=== PATIENT | female | born 1945 | race Caucasian/White ===

== ENCOUNTER 2020-02-08 06:58 | Emergency (ER) | payer MEDICARE, MEDICAID, SELFPAY ==
--- NOTE | ~2020-02-08 | XR_ITS ---
EXAMINATION: XR chest 2V DATE: 02/08/2020 08:01 INDICATION: Chest pain, shortness of breath TECHNIQUE: AP and lateral views of the chest are obtained. COMPARISON: 04/16/2018 FINDINGS: The lungs are free of acute opacities. There is no pleural effusion or pneumothorax. The ca rdiomediastinal silhouette is normal. There is moderate thoracic spondylosis. IMPRESSION: 1. No acute cardiopulmonary abnormality. Reviewed, dictated and finalized at location A.
--- NOTE | ~2020-02-08 | US_ITS ---
EXAMINATION: US right upper quadrant DATE: 02/08/2020 08:04 INDICATION: Right upper quadrant and epigastric abdominal pain TECHNIQUE: Multiple grayscale and Doppler ultrasound images of the abdomen were obtained. COMPARISON: CT, 04/13/2018 FINDINGS: Bowel gas obscures visualization of the pancreas. The visualized portions of the pancreas a re unremarkable. The liver is normal with normal echogenicity and echotexture. No surface nodularity. Normal hepatopetal flow in the main portal vein. The gallbladder is normal with no abnormal wall thi ckening, pericholecystic fluid or stones. The normal common bile duct measures 5 mm. There was no son ographic Kimball sign. IMPRESSION: 1. Normal sonographic study of the gallbladder. Reviewed, dictated and finalized at location A.
[2020-02-08 06:57] VITALS: BP 176/79; PULSE 98; RESP 24; TEMP 36.6; O2SAT 96
[2020-02-08 07:10] VITALS: PULSE 95
--- NOTE | 2020-02-08 07:12 | ECG_ITS ---
Measurements Intervals [place] Rate: 95 P: 73 [place]: 157 QRS: -28 QRSD: 97 T: 42 QT: 308 QTc: 388 Interpretive Statements SINUS RHYTHM DELAYED PRECORDIAL R/S TRANSITION BASELINE ARTIFACT- I, II, III, AVR, AVL, AVF BORDERLINE ECG Electronically Signed On 02-08-2020 8:05:59 CDT by Ezio Garcia D.O.
[2020-02-08 07:26] LABS: Basophils Percent Auto 0.3 % (0.2-1.2); Eosinophils Absolute Auto 0.4 K/mm3 (0-0.3); Eosinophils Percent Auto 3.7 % (0-4.4); Hematocrit 42.8 % (37.0-47.0); Hemoglobin 14.2 g/dL (12.0-15.0); Immature Granulocyte Absolute 0.03 K/mm3 (0.00-0.031); Immature Granulocyte Percent A 0.3 % (0-0.5); Lymphocytes Absolute Auto 3.24 K/mm3 (0.9-3.2); Lymphocytes Percent Auto 27.7 % (18.3-44.2); Mean Corpuscular HGB Conc 33.2 g/dl (32-36); Mean Corpuscular Hemoglobin 30.7 pg (26-34); Mean Corpuscular Volume 92.4 fl (80-100); Mean Platelet Volume 10.8 fl (7.4-10.4); Monocytes Percent Auto 8.7 % (2.6-8.5); Neutrophils Absolute Auto 6.9 K/mm3 (1.3-6.7); Neutrophils Percent Auto 59.3 % (45.5-73.1); Platelet Count Result 201 k/mm3 (150-375); Red Blood Count 4.63 M/mm3 (4.2-5.4); Red Cell Distribution Width 13.3 % (11.5-14.5); White Blood Count 11.7 K/mm3 (4.5-10.0)
[2020-02-08 07:36] LABS: INR 0.9; Prothrombin Time 12.3 Seconds (11.1-14.7)
[2020-02-08 07:37] LABS: Partial Thromboplastin Time 27.4 SECONDS (22.3-36.8)
[2020-02-08 07:38] LABS: Anion Gap 6 mmol/L (8-16); Blood Urea Nitrogen 29 mg/dL (7-17); Calcium 9.2 mg/dL (8.4-10.2); Carbon Dioxide 26 mmol/L (22-30); Chloride 104 mmol/L (98-107); Estimated CRCL calculation 43 ml/min; Estimated Glomerular Filt Rate 49; Glucose 123 mg/dL (65-105); Potassium 3.8 mmol/L (3.4-5.0); Sodium 136 mmol/L (137-145)
--- NOTE | 2020-02-08 07:46 | ED.GENADULT ---
HPI - General Adult General Chief complaint: Chest Pain Stated complaint: CHEST PRESSURE Time Seen by Provider: 02/08/20 06:59 History of Present Illness HPI narrative: Patient is a 74-year-old female who presents the ER with chest pain. Began last night at 4:30 AM. The last about 15 minutes at a time then goes away for 20 minutes. Seems to go from her epigastrium to her back and vice versa. No nausea or vomiting or sweats. She is without shortness of breath. No aggravating or alleviating factors. Has not had similar symptoms before. Reports once in the past she was diagnosed with angina, however chart review shows she has history of right coronary artery stenting in 2013. Unsure if this is similar. Related Data Home Medications Medication Instructions Recorded Confirmed albuterol sulfate INHALATION 02/08/20 aspirin 81 mg PO DAILY 02/08/20 02/08/20 budesonide-formoterol [Symbicort] INHALATION 02/08/20 doxazosin mg 02/08/20 fosinopril 02/08/20 levothyroxine 02/08/20 lorazepam 02/08/20 simvastatin mg 02/08/20 tiotropium bromide [Spiriva INHALATION 02/08/20 Respimat] Allergies Allergy/AdvReac Type Severity Reaction Status Date / Time Penicillins Allergy Unknown Difficulty Verified 02/08/20 07:11 Breathing CEFUROXIME AXETIL Allergy Unknown Itching Uncoded 02/08/20 07:11 Review of Systems Review of Systems: All systems reviewed & are unremarkable except as noted in HPI and below Constitutional: Constitutional: Denies chills, Denies fever(s) and Denies weakness ENT: Denies nasal congestion and Denies sore throat Cardiovascular: Cardiovascular: Reports chest pain, Denies rapid heart rate and Denies radiating jaw, neck or arm pain Respiratory: Respiratory: Denies cough and Denies dyspnea Gastrointestinal: Gastrointestinal: Denies abdominal pain, Denies diarrhea, Denies nausea and Denies vomiting [facility], [facility] Past Medical History Medical History (Updated 02/08/20 @ 11:05 by Abdirashid Servin MD) COPD (chronic obstructive pulmonary disease) Coronary artery disease Hypertension Surgical History Surgical History (Updated 02/08/20 @ 07:51 by Abdirashid Servin MD) H/O: hysterectomy History of appendectomy S/P right coronary artery (RCA) stent placement Social History Social History (Updated 02/08/20 @ 07:49 by Abdirashid Servin MD) Smoking status: Former smoker Exam Narrative: Exam Narrative: GENERAL: Well-appearing, well-nourished, and in no acute distress. HEAD: Normocephalic, atraumatic. ENT: Mucous membranes moist. CHEST: Clear to auscultation. No respiratory distress. HEART: Regular rate and rhythm. Normal peripheral pulses. ABDOMEN: Soft, nontender, nondistended. EXTREMITIES: Normal range of motion. No edema. SKIN: Warm, dry, no rash. NEURO: Alert and oriented x3. Course Course Emergency Course: Troponins negative x2. No pain since she is been picked up by EMS. Patient would like to go home. States she will follow-up with her senior hris analyst Dr. Dao. She had a negative stress test 1 year ago. Discussed maybe she should obtain a second one. Vital Signs Vital signs: Vital Signs Temperature 97.9 F 02/08/20 06:57 Pulse Rate 98 02/08/20 06:57 Respiratory Rate 24 H 02/08/20 06:57 Blood Pressure 176/79 H 02/08/20 06:57 Pulse Oximetry 96 02/08/20 06:57 Temperature 97.9 F 02/08/20 06:57 Pulse Rate 95 02/08/20 07:10 Respiratory Rate 24 H 02/08/20 06:57 Blood Pressure 176/79 H 02/08/20 06:57 Pulse Oximetry 96 02/08/20 06:57 Medical Decision Making Vital Signs Vital Signs: Vital Signs Temperature 97.9 F 02/08/20 06:57 Pulse Rate 98 02/08/20 06:57 Respiratory Rate 24 H 02/08/20 06:57 Blood Pressure 176/79 H 02/08/20 06:57 Pulse Oximetry 96 02/08/20 06:57 Temperature 97.9 F 02/08/20 06:57 Pulse Rate 95 02/08/20 07:10 Respiratory Rate 24 H 02/08/20 06:57 Blood Pressure 176/79 H 02/08/20 06:57 Pulse Oxime
[2020-02-08 07:49] LABS: Alanine Aminotransferase 18 U/L (4-35); Albumin Level 3.9 g/dL (3.5-5.1); Alkaline Phosphatase 114 U/L (38-126); Aspartate Amino Transferase 24 U/L (14-36); Bilirubin,Total 0.4 mg/dL (0.2-1.3); Lipase 73 U/L (23-300)
[2020-02-08 07:50] LABS: Troponin I < 0.012 ng/mL (0.000-0.034)
[2020-02-08] MEDS: SODIUM CHLORIDE 0.9% IV 1,000 ML 999 ML IV CONT (08:22)
[2020-02-08 09:00] VITALS: BP 128/76; PULSE 92; RESP 17; O2SAT 98
[2020-02-08 10:43] LABS: Troponin I < 0.012 ng/mL (0.000-0.034)
[2020-02-08 10:45] VITALS: BP 125/74; PULSE 90; RESP 16; O2SAT 98
== END 2020-02-08 11:35 | disposition home or self-care (01) ==
PROVIDERS: Emergency Provider Emergency Medicine; PCP Internal Medicine
DX: R07.89 Other chest pain (principal); J44.9 Chronic obstructive pulmonary disease, unspecified; I25.10 Atherosclerotic heart disease of native coronary artery without angina pectoris; I10 Essential (primary) hypertension; Z79.82 Long term (current) use of aspirin; Z95.5 Presence of coronary angioplasty implant and graft; Z87.891 Personal history of nicotine dependence; R94.31 Abnormal electrocardiogram [ECG] [EKG]
CPT/HCPCS: 36415; 71046; 76705; 80048; 80076; 83690; 84484; 85025; 85610; 85730; 93005; 96360; 96361; 99284; J7030

== ENCOUNTER 2021-06-06 05:09 | Emergency (ER) | payer MEDICARE, MEDICAID, SELFPAY ==
--- NOTE | ~2021-06-06 | XR_ITS ---
EXAMINATION: XR chest 1V portable DATE: 06/06/2021 12:35 INDICATION: Right chest pain. TECHNIQUE: A single frontal view of the chest was obtained. COMPARISON: Chest 2 views 02/08/2020, CT abdomen and pelvis 06/06/2021 FINDINGS: The chest demonstrates clear lungs without pneumonia, pleural effusion, or pneumothorax. Th e heart size is normal. IMPRESSION: 1. No acute cardiopulmonary disease. Reviewed, dictated and finalized at location A. RETTE ROLLER
--- NOTE | ~2021-06-06 | CT_ITS ---
EXAMINATION: CT abdomen pelvis w con DATE: 06/06/2021 08:09 INDICATION: Right flank pain. Nausea and vomiting. TECHNIQUE: Computed tomography (CT) of the abdomen and pelvis was performed with 100 mL Omnipaque 350 intravenous contrast. Automated exposure control and iterative reconstruction technique were employe d. The dose-length product was 1177.12 mGy-cm. COMPARISON: CT abdomen and pelvis 04/13/2018 FINDINGS: The visualized portions of the lung bases demonstrate mild atelectasis. A calcified left patty ng nodule is consistent with old granulomatous disease. No pleural effusion. The heart size is normal . No pericardial effusion. There are coronary artery calcifications. The liver, gallbladder, spleen, pancreas, and adrenal glands are normal. There are cysts in the kidneys measuring up to 13 mm on the right. There is diverticulosis of the colon without evidence of diverticulitis. The appendix is not v isualized. There is a small sliding hiatal hernia. There is a small umbilical hernia containing fat. There are no pathologically enlarged lymph nodes. There is no free intraperitoneal fluid. There is se igor lumbar spondylosis. IMPRESSION: 1. Small sliding hiatal hernia. 2. Umbilical hernia containing fat. Reviewed, dictated and finalized at location A. TION METALSMITH
[2021-06-06 05:15] VITALS: BP 145/112; PULSE 70; RESP 16; TEMP 35.9; O2SAT 96
[2021-06-06] MEDS: fentaNYL CITRATE INJ (*CRX) 100 MCG/2 ML VIAL 50 MCG IV PUSH (06:25)
[2021-06-06] MEDS: ONDANSETRON INJ 4 MG/2 ML VIAL IV PUSH ×2 (06:25→09:07)
[2021-06-06 06:30] VITALS: BP 169/63; PULSE 99; RESP 20; O2SAT 94
[2021-06-06 07:15] LABS: Basophils Percent Auto 0.2 % (0.2-1.2); Eosinophils Absolute Auto 0.2 K/mm3 (0-0.3); Eosinophils Percent Auto 1.9 % (0-4.4); Hematocrit 40.8 % (37.0-47.0); Hemoglobin 13.5 g/dL (12.0-15.0); Immature Granulocyte Absolute 0.02 K/mm3 (0.00-0.031); Immature Granulocyte Percent A 0.2 % (0-0.5); Lymphocytes Absolute Auto 1.11 K/mm3 (0.9-3.2); Lymphocytes Percent Auto 13.8 % (18.3-44.2); Mean Corpuscular HGB Conc 33.1 g/dl (32-36); Mean Corpuscular Hemoglobin 30.7 pg (26-34); Mean Corpuscular Volume 92.7 fl (80-100); Mean Platelet Volume 11.2 fl (7.4-10.4); Monocytes Absolute Auto 0.6 K/mm3 (0.1-0.6); Monocytes Percent Auto 6.8 % (2.6-8.5); Neutrophils Absolute Auto 6.2 K/mm3 (1.3-6.7); Neutrophils Percent Auto 77.1 % (45.5-73.1); Platelet Count Result 187 k/mm3 (150-375); Red Cell Distribution Width 13.2 % (11.5-14.5); White Blood Count 8.1 K/mm3 (4.5-10.0)
--- NOTE | 2021-06-06 07:18 | ED.ABDPAIN ---
HPI - Abdominal Pain General Chief Complaint: Abdominal Pain Stated Complaint: Back Pain Time Seen by Provider: 06/06/21 07:08 Source: RN notes reviewed History of Present Illness HPI narrative: Patient presents emergency department from home for abdominal pain. Patient states pain began 2 days ago. Pain is located in the right flank region and radiates around under the right rib cage pain described as sharp and stabbing has been constant for the past 2 days is associated with nausea. Patient denies any fevers or chills chest pain shortness of breath vomiting diarrhea or any other symptoms states she took a tramadol at home for the pain with minimal relief. Related Data Home Medications Medication Instructions Recorded Confirmed albuterol sulfate INHALATION 02/08/20 aspirin 81 mg PO DAILY 02/08/20 02/08/20 budesonide-formoterol [Symbicort] INHALATION 02/08/20 doxazosin mg 02/08/20 fosinopril 02/08/20 levothyroxine 02/08/20 lorazepam 02/08/20 simvastatin mg 02/08/20 tiotropium bromide [Spiriva INHALATION 02/08/20 Respimat] Allergies Allergy/AdvReac Type Severity Reaction Status Date / Time Penicillins Allergy Unknown Difficulty Verified 06/06/21 05:19 Breathing CEFUROXIME AXETIL Allergy Unknown Itching Uncoded 06/06/21 05:19 Review of Systems Review of Systems: Gen.: Denies fevers or chills ENT: Denies congestion Respiratory: Denies shortness of breath or cough CV: Denies chest pain or palpitations GI: See HPI denies burning, urgency, frequency or hematuria Musculoskeletal: Denies back pain or muscle pain Neuro: Denies numbness, tingling, weakness or focal weakness Skin: Denies rash Except as documented, all other systems reviewed and negative [facility] Past Medical History Medical History COPD (chronic obstructive pulmonary disease) Coronary artery disease Hypertension Surgical History Surgical History (Updated 02/08/20 @ 07:51 by Abdirashid Servin MD) H/O: hysterectomy History of appendectomy S/P right coronary artery (RCA) stent placement Social History Social History Smoking status: Former smoker Exam Narrative: APPEARANCE: No acute distress, nontoxic, resting in bed HEENT: Normocephalic, atraumatic, OMM RESPIRATORY: No respiratory distress, clear to auscultation bilaterally with no rhonchi wheezing or rales CARDIOVASCULAR: RRR s murmur ABDOMINAL: Soft nondistended tender palpation right upper quadrant no tenderness left lower quadrant, right lower quadrant left lower quadrant no rebound or guarding MUSCULOSKELETAl: Moves all extremities. No clubbing, cyanosis or edema. NEURO: Awake and alert. Following commands, speech normal, no focal deficits SKIN:: Warm, dry. Normal Color no rash seen over right flank PSYCHIATRIC: Normal affect/mood Course Course Emergency Course: Patient with return of pain and tenderness in the right flank no tenderness in the abdomen no overlying rash seen Patient's PCP contacted Discussed with patient results of workup and diagnosis. Discussed need for follow-up with primary care, proper use of medication, and reasons to return to the emergency department. Patient understands and agrees to current treatment plan Vital Signs Vital signs: Vital Signs Temperature 96.6 F L 06/06/21 05:15 Pulse Rate 70 06/06/21 05:15 Respiratory Rate 16 06/06/21 05:15 Blood Pressure 145/112 H 06/06/21 05:15 Pulse Oximetry 96 06/06/21 05:15 Temperature 96.6 F L 06/06/21 05:15 Pulse Rate 72 06/06/21 13:22 Respiratory Rate 20 06/06/21 13:22 Blood Pressure 157/57 H 06/06/21 09:34 Pulse Oximetry 94 06/06/21 13:22 MDM - Abdominal Pain MDM Narrative Medical decision making narrative: Patient presents for further pain in the last 2 days has been constant in the right flank radiates around to the right abdomen under the rib cage
[2021-06-06 07:19] LABS: Add Urine Microscopic? YES; Appearance Urine Clear (Clear); Bacteria Urine Trace /hpf; Bilirubin Urine Negative (Negative); Blood Urine Negative (Negative); Color Urine Yellow (Yellow); Glucose Urine UA Negative (Negative); Ketones Urine Trace mg/dL (Negative); Leukocyte Esterase Ur Negative LEU/UL (Negative); Mucus Urine Rare /lpf; Nitrate Urine Negative (Negative); Protein Urine Negative (Negative); Specific Grav Ur 1.019 (1.001-1.035); Squamous Epithelial Cell Urine Few /hpf (Few); Urobilinogen Urine Negative mg/dL (<2.0); WBC Urine 0-3 /hpf
[2021-06-06 07:28] LABS: Lactic Acid Reflex 1.3 mmol/L (0.7-2.1)
[2021-06-06 07:29] LABS: Alanine Aminotransferase 19 U/L (4-35); Albumin Level 4.1 g/dL (3.5-5.1); Alkaline Phosphatase 75 U/L (38-126); Anion Gap 8 mmol/L (8-16); Aspartate Amino Transferase 24 U/L (14-36); Bilirubin,Total 0.5 mg/dL (0.2-1.3); Blood Urea Nitrogen 13 mg/dL (7-17); Calcium 9.2 mg/dL (8.4-10.2); Carbon Dioxide 25 mmol/L (22-30); Chloride 102 mmol/L (98-107); Estimated CRCL calculation 70 ml/min; Estimated Glomerular Filt Rate > 60; Glucose 132 mg/dL (65-110); Lipase 27 U/L (23-300); Potassium 3.5 mmol/L (3.4-5.0); Sodium 135 mmol/L (137-145)
[2021-06-06 08:27] VITALS: BP 164/58; PULSE 66; RESP 20; O2SAT 94
[2021-06-06 09:34] VITALS: BP 157/57; PULSE 65; RESP 20; O2SAT 93
--- NOTE | 2021-06-06 10:57 | PC.NURSE ---
pt complaining of pain. EDP made aware and states he will come talk to her. pt made aware.
--- NOTE | 2021-06-06 11:17 | ECG_ITS ---
Measurements Intervals [place] Rate: 61 P: 62 [place]: 151 QRS: -31 QRSD: 94 T: 6 QT: 427 QTc: 431 Interpretive Statements SINUS RHYTHM LEFT AXIS DEVIATION BORDERLINE R WAVE PROGRESSION, ANTERIOR LEADS BORDERLINE T WAVE ABNORMALITY- ANTERIOR LEADS BASELINE ARTIFACT- I, II, III, AVR, AVL, AVF BORDERLINE ECG Electronically Signed On 06-06-2021 13:33:50 CONTAINER CRANE OPERATOR by Ezio Garcia D.O.
[2021-06-06] MEDS: MORPHINE SULFATE (*CRX) 4 MG/ML INJ IV PUSH (11:28)
[2021-06-06 11:53] LABS: D Dimer 0.35 ug/mL (<0.48)
[2021-06-06 12:02] LABS: Troponin I < 0.012 ng/mL (0.000-0.034)
[2021-06-06 13:22] VITALS: PULSE 72; RESP 20; O2SAT 94
== END 2021-06-06 13:23 | disposition home or self-care (01) ==
PROVIDERS: Emergency Medicine; Emergency Provider Emergency Medicine; PCP Internal Medicine
DX: R10.9 Unspecified abdominal pain (principal); I25.10 Atherosclerotic heart disease of native coronary artery without angina pectoris; J44.9 Chronic obstructive pulmonary disease, unspecified; I10 Essential (primary) hypertension; Z87.891 Personal history of nicotine dependence
CPT/HCPCS: 36415; 71045; 74177; 80053; 81001; 83605; 83690; 84484; 85025; 85380; 93005; 96374; 96375; 96376; 99284; J2270; J2405; J3010; Q9967

== ENCOUNTER 2021-06-09 12:13 | Emergency (ER) | payer MEDICARE, MEDICAID, SELFPAY ==
--- NOTE | ~2021-06-09 | XR_ITS ---
EXAMINATION: XR chest 1V portable DATE: 06/09/2021 15:34 INDICATION: Vomiting. Lump on the right posterior chest. TECHNIQUE: frontal view of the chest was obtained. COMPARISON: Chest radiograph dated 06/06/2021 FINDINGS: Unchanged mild streaky atelectasis/scarring at the left lung base. There is also a small calcite nodu les in the left lung base consistent with old granulomatous disease. No new airspace opacities, pulmo nary edema, pleural effusion or pneumothorax. The cardiomediastinal silhouette is normal. IMPRESSION: 1. Unchanged mild streaky left basilar atelectasis/scarring. No acute cardiopulmonary disease. Reviewed, dictated and finalized at location B. UITE DEVELOPER IMPRESSION: 1. Unchanged mild streaky left basilar atelectasis/scarring. No acute cardiopul monary disease.
[2021-06-09 12:36] VITALS: BP 152/135; PULSE 58; RESP 18; TEMP 36.6; O2SAT 95
[2021-06-09] MEDS: ONDANSETRON INJ 4 MG/2 ML VIAL IV PUSH (16:24)
[2021-06-09] MEDS: KETOROLAC 15 MG/ML VIAL (*BKC) IV PUSH (16:24)
--- NOTE | 2021-06-09 16:24 | ED.GENADULT ---
HPI - General Adult General Chief complaint: Back Pain/Injury Stated complaint: back pain Time Seen by Provider: 06/09/21 14:05 Source: patient Mode of arrival: ambulatory Limitations: no limitations History of Present Illness HPI narrative: Patient is a 76yo female with CC of right upper back pain over the past few days. She was seen here in this ER and had labs and imaging done which was negative. ER provider contacted her primary care and she had a follow up appointment scheduled for today. Patient was discharged home with [place] for pain. Patient states she has run out of pain medication and the pain is so great that she did not go to her PCP appointment but called the ambulance to bring her to the ER. She states the pain is so great it's made her vomit. She reports it is nerve pain from a history of a disc issue. She denies current injury. She reports there is discoloration to the right flank due to dry skin, but refuses shingles. She denies fever, chills, chest pain, shortness of breath. Related Data Home Medications Medication Instructions Recorded Confirmed albuterol sulfate INHALATION 02/08/20 aspirin 81 mg PO DAILY 02/08/20 02/08/20 budesonide-formoterol [Symbicort] INHALATION 02/08/20 doxazosin mg 02/08/20 fosinopril 02/08/20 levothyroxine 02/08/20 lorazepam 02/08/20 simvastatin mg 02/08/20 tiotropium bromide [Spiriva INHALATION 02/08/20 Respimat] Allergies Allergy/AdvReac Type Severity Reaction Status Date / Time Penicillins Allergy Unknown Difficulty Verified 06/06/21 05:19 Breathing CEFUROXIME AXETIL Allergy Unknown Itching Uncoded 06/06/21 05:19 Review of Systems Review of Systems: CONSTITUTIONAL: Denies fever, chills, or sweats. EYES: Denies visual changes, redness, or discharge. ENT: Denies rhinorrhea, congestion, sore throat, or otalgia. CARDIOVASCULAR: Denies chest pain, palpitations, or edema. RESPIRATORY: Denies cough or dyspnea. GASTROINTESTINAL: Reports nausea, vomiting Denies abdominal pain or diarrhea. GENITOURINARY: Denies dysuria or hematuria. SKIN: Denies rash or itching. MUSCULOSKELETAL: Reports right flank pain, Denies myalgia, or joint pain NEUROLOGIC: Denies headache, numbness, dizziness, or weakness. PSYCHIATRIC: Denies anxiety or depression. [facility] Past Medical History Medical History COPD (chronic obstructive pulmonary disease) Coronary artery disease Hypertension Surgical History Surgical History (Updated 02/08/20 @ 07:51 by Abdirashid Servin MD) H/O: hysterectomy History of appendectomy S/P right coronary artery (RCA) stent placement Social History Social History Smoking status: Former smoker Exam Narrative: GENERAL: Well-appearing, well-nourished. Patient continuously flopping around the bed. HEAD: Normocephalic, atraumatic. EYES: PERRLA and EOMI. CHEST: Clear to auscultation. No respiratory distress. No wheezes rales or rhonchi HEART: Regular rate and rhythm. Normal peripheral pulses. ABDOMEN: Soft, nontender, nondistended, normal active bowel sounds. No bruises noted. EXTREMITIES: No acute changes in ROM. No edema. SKIN: Red patches to right upper thorax. No vesicles. Not tender to touch. NEURO: No focal deficits. Alert and oriented x3. PSYCH: Normal mood and affect. Course Vital Signs Vital signs: Vital Signs Temperature 98 F 06/09/21 12:36 Pulse Rate 58 L 06/09/21 12:36 Respiratory Rate 18 06/09/21 12:36 Blood Pressure 152/135 H 06/09/21 12:36 Pulse Oximetry 95 06/09/21 12:36 Temperature 98 F 06/09/21 12:36 Pulse Rate 84 06/09/21 18:06 Respiratory Rate 21 H 06/09/21 18:06 Blood Pressure 155/63 H 06/09/21 18:06 Pulse Oximetry 93 06/09/21 18:06 Medical Decision Making MDM Narrative Medical decision making narrative: Patient is adimant that the redness to her right upper thorax i
[2021-06-09] MEDS: SODIUM CHLORIDE 0.9% IV 1,000 ML 999 ML IV CONT (16:25)
[2021-06-09 16:39] LABS: Basophils Percent Auto 0.2 % (0.2-1.2); Eosinophils Percent Auto 0.2 % (0-4.4); Hematocrit 41.5 % (37.0-47.0); Immature Granulocyte Absolute 0.02 K/mm3 (0.00-0.031); Immature Granulocyte Percent A 0.2 % (0-0.5); Lymphocytes Percent Auto 9.2 % (18.3-44.2); Mean Corpuscular HGB Conc 33.7 g/dl (32-36); Mean Corpuscular Hemoglobin 30.9 pg (26-34); Mean Corpuscular Volume 91.6 fl (80-100); Monocytes Absolute Auto 0.7 K/mm3 (0.1-0.6); Monocytes Percent Auto 8.3 % (2.6-8.5); Neutrophils Absolute Auto 7.1 K/mm3 (1.3-6.7); Neutrophils Percent Auto 81.9 % (45.5-73.1); Platelet Count Result 188 k/mm3 (150-375); Red Blood Count 4.53 M/mm3 (4.2-5.4); Red Cell Distribution Width 12.9 % (11.5-14.5); White Blood Count 8.7 K/mm3 (4.5-10.0)
[2021-06-09 16:50] LABS: Alanine Aminotransferase 26 U/L (4-35); Albumin Level 4.1 g/dL (3.5-5.1); Alkaline Phosphatase 75 U/L (38-126); Anion Gap 8 mmol/L (8-16); Aspartate Amino Transferase 37 U/L (14-36); Bilirubin,Total 0.5 mg/dL (0.2-1.3); Blood Urea Nitrogen 15 mg/dL (7-17); Calcium 9.4 mg/dL (8.4-10.2); Carbon Dioxide 28 mmol/L (22-30); Chloride 96 mmol/L (98-107); Estimated CRCL calculation 51 ml/min; Estimated Glomerular Filt Rate > 60; Glucose 115 mg/dL (65-110); Lipase 42 U/L (23-300); Potassium 3.7 mmol/L (3.4-5.0); Sodium 132 mmol/L (137-145)
[2021-06-09 17:33] LABS: Add Urine Microscopic? YES; Appearance Urine Cloudy (Clear); Bacteria Urine 1+ /hpf; Bilirubin Urine Negative (Negative); Blood Urine 1+ (Negative); Color Urine Yellow (Yellow); Glucose Urine UA Negative (Negative); Ketones Urine 1+ mg/dL (Negative); Leukocyte Esterase Ur Negative LEU/UL (Negative); Mucus Urine Few /lpf; Nitrate Urine Negative (Negative); Protein Urine 1+ mg/dL (Negative); Specific Grav Ur 1.026 (1.001-1.035); Squamous Epithelial Cell Urine Many /hpf (Few); Urobilinogen Urine Negative mg/dL (<2.0); WBC Urine 0-3 /hpf
[2021-06-09 18:06] VITALS: BP 155/63; PULSE 84; RESP 21; O2SAT 93
== END 2021-06-09 18:07 | disposition home or self-care (01) ==
PROVIDERS: Physician Assistant; Emergency Provider Emergency Medicine; PCP Internal Medicine
DX: L98.9 Disorder of the skin and subcutaneous tissue, unspecified (principal); J44.9 Chronic obstructive pulmonary disease, unspecified; I25.10 Atherosclerotic heart disease of native coronary artery without angina pectoris; I10 Essential (primary) hypertension; Z87.891 Personal history of nicotine dependence
CPT/HCPCS: 36415; 71045; 80053; 81001; 83690; 85025; 96361; 96374; 96375; 99284; J1885; J2405; J7030

== ENCOUNTER 2021-08-28 15:00 | Outpatient (CLI) | payer MEDICARE, MEDICAID, SELFPAY ==
--- NOTE | ~2021-08-28 | CT_ITS ---
EXAMINATION: CT brain wo con EXAM DATE: 08/28/2021 15:29 INDICATION: Memory impairment. Cervical cancer. TECHNIQUE: Spiral CT of the head was performed without contrast. Axial, coronal and sagittal images were reviewed. The dose-length product (DLP) for this examination was 605.33 mGy-cm. The exposure w as tailored according to patient size, and iterative reconstruction (ASIR) was used as additional dos e reduction technique. There is no prior study for comparison. FINDINGS: There is no acute intraparenchymal hemorrhage. No evidence of intraparenchymal brain mass lesion. No evidence of acute infarction. Please note that initial head CT has limited sensitivity f or small or acute infarctions. There is mild periventricular and subcortical hypodensity, nonspecific but probably related to small vessel ischemic disease. There is mild prominence of the sulci and v entricles related to cerebral atrophy. There is intracranial carotid arteriosclerosis. There are n o extra-axial collections. There is no mass effect or midline shift. Patient has had bilateral ocul ar lens surgery. Soft tissue is unremarkable. The visualized sinuses and mastoid air cells are well aerated. IMPRESSION: 1. No acute intracranial findings. 2. Chronic age related findings. Reviewed, dictated and finalized at location G.
== END 2021-08-28 15:01 | disposition home or self-care (01) ==
LOC: ANHIMG 15:04
PROVIDERS: PCP Internal Medicine; Visit Provider Internal Medicine
DX: R41.3 Other amnesia (principal)
CPT/HCPCS: 70450

== ENCOUNTER 2025-04-24 14:47 | Outpatient (CLI) | payer MEDICARE, MEDICAID, SELFPAY ==
--- NOTE | 2025-04-25 16:23 | WPDPFTINT ---
PFT Procedure Performed PFT Procedure Performed Spirometry with Pre/Post Bronchodilator Plethysmography (Lung Vol) Diffusing Cap (DLCO) Flow Vol Loop PFT Interpretation This is a pulmonary function test with pre and post-bronchodilator spirometry, plethysmography and diffusing capacity. The test was performed and results interpreted in accordance with the 2019 and 2005 ATS/ERS Task Force guidelines respectively using the Global Lung Function Initiative-2012 reference equations. Patient demonstrated good effort and cooperation. Reproducibility criteria were met. The quality of the pre bronchodilator spirometry maneuver was Grade A and post bronchodilator spirometry maneuver was Grade A. Findings: Spirometry: There is decreased maximal expiratory airflow at all lung volumes with concave expiratory flow tracing. The contour the inspiratory flow tracing is normal. The pre bronchodilator FVC is 1.83 L, 77% predicted. The pre bronchodilator FEV1 is 0.97 L, 53% predicted. The pre bronchodilator FEV1: FVC ratio is 53%. The post bronchodilator FVC is 2.13 L representing a 17% increase. The post bronchodilator FEV1 is 1.15 L, representing a 19% increase. The post bronchodilator FEV1: FVC ratio is 54%. Plethysmography: The total lung capacity is 4.82 L, 102% predicted. The functional residual capacity is 3.48 L, 128% predicted. The residual volume is 2.94 L, 130% predicted. The residual volume: Total lung capacity ratio 61%. Diffusing capacity: The diffusing capacity unadjusted for hemoglobin and carboxyhemoglobin is 9.0, 48% predicted. The diffusing capacity adjusted for alveolar volume is 2.65, 62% repeat predicted. Impression: There is a moderately severe obstructive abnormality. There is significant improvement after inhaling a single dose of albuterol. The increase in residual volume to total lung volume ratio is consistent with hyperinflation from an obstructive abnormality. The diffusing capacity unadjusted for hemoglobin and carboxyhemoglobin is moderately decreased and remains mildly decreased when adjusted for alveolar volume. There are no prior studies for comparison
== END 2025-04-24 14:48 | disposition home or self-care (01) ==
PROVIDERS: PCP Internal Medicine; Visit Provider Internal Medicine Pulmonary Disease
DX: R05.9 Cough, unspecified (principal); R06.09 Other forms of dyspnea; D89.9 Disorder involving the immune mechanism, unspecified; T78.40XA Allergy, unspecified, initial encounter; R94.2 Abnormal results of pulmonary function studies
CPT/HCPCS: 94060; 94726; 94729